=== PATIENT | female | born 1950 | race Caucasian/White ===

== ENCOUNTER 2019-11-08 10:06 | Emergency (ER) | payer OTHER ==
[2019-11-08 10:28] VITALS: BP 152/74; PULSE 83; BMI 26.4
[2019-11-08] MEDS ORDERED: METHOCARBAMOL 500 MG TABLET PO ONE (10:40)
[2019-11-08] MEDS ORDERED: KETOROLAC TROMETHAMINE 30 MG/1 ML VIAL IM ONE (10:40)
[2019-11-08] MEDS ORDERED: KETOROLAC TROMETHAMINE 30 MG/1 ML VIAL ONE (10:48)
[2019-11-08] MEDS ORDERED: METHOCARBAMOL 500 MG TABLET ONE (10:48)
--- NOTE | 2019-11-08 10:56 | PDOC ---
History of Present Illness - General Chief Complaint: Back Pain Stated Complaint: BACK PAIN Time Seen by Provider: 11/08/19 10:31 History Source: Patient Exam Limitations: Clinical Condition - History of Present Illness Initial Comments: 11/08/19 10:51 Patient with no significant past medical history present with complaint of 5-day history of persistent bilateral lower back pain with increased pain to left side status post doing house cleaning and mopping 5 days ago. Denies radiculopathy. Denies saddle paresthesia, urinary and fecal incontinence. Denies any other symptoms. Patient report taking Tylenol for back pain with no improvement Occurred: reports: other (5 days) Past History - Medical History Allergies/Adverse Reactions: Allergies Allergy/AdvReac Type Severity Reaction Status Date / Time No Known Allergies Allergy Verified 11/08/19 10:21 Home Medications: Ambulatory Orders Calcium+ Vitamin D 1 tab PO DAILY 04/24/11 Lisinopril 20Mg/Hctz 12.5MG 1 tab PO DAILY 04/24/11 Methocarbamol [Robaxin -] 500 mg PO BID #14 tablet 11/08/19 Naproxen [Naprosyn -] 375 mg PO BID PRN #20 tablet 11/08/19 Anemia: No Asthma: No Cancer: No Cardiac Disorders: No CVA: No COPD: No CHF: No Dementia: No Diabetes: No GI Disorders: No Disorders: No HTN: Yes Hypercholesterolemia: Yes Liver Disease: No Seizures: No Thyroid Disease: No - Surgical History Abdominal Surgery: No Appendectomy: No Cardiac Surgery: No Cholecystectomy: No Lung Surgery: No Neurologic Surgery: No Orthopedic Surgery: No - Psycho-Social/Smoking History Smoking History: Never smoked Have you smoked in the past 12 months: Yes - Substance Abuse Hx (Audit-C & DAST Scrn) How often the patient has a drink containing alcohol: Never Score: In Men: 4 or > Positive; In Women: 3 or > Positive: 0 Screen Result (Pos requires Nsg. Audit-10AR): Negative In the last yr the pt used illegal drug/Rx for NonMed reason: No Score: Yes response is considered Positive: 0 Screen Result (Positive result requires Nsg. DAST-10): Negative Review of Systems - Review of Systems Able to Perform ROS?: Yes Is the patient limited Wallisian proficient: No Constitutional: No: Chills, Fever, Malaise HEENTM: No: Symptoms Reported, See HPI, Eye Pain, Blurred Vision, Tearing, Recent change in vision, Double Vision, Cataracts, Ear Pain, Ocular Prothesis, Ear Discharge, Nose Pain, Nose Congestion, Tinnitus, Nose Bleeding, Hearing Loss, Throat Pain, Throat Swelling, Mouth Pain, Dental Problems, Difficulty Swallowing, Mouth Swelling, Other Respiratory: No: Symptoms reported, See HPI, Cough, Orthopnea, Shortness of Breath, SOB with Exertion, SOB at Rest, Stridor, Wheezing, Productive cough, Hemoptysis, Other Cardiac (ROS): No: Symptoms Reported, See HPI, Chest Pain, Edema, Irregular Heart Rate, Lightheadedness, Palpitations, Syncope, Chest Tightness, Other ABD/GI: No: Symptoms Reported, Abd. Pain w/ defecation, Nausea, Vomiting Musculoskeletal: Yes: Symptoms Reported, See HPI, Back Pain, Muscle Pain Integumentary: No: Symptoms Reported Neurological: No: Symptoms reported, See HPI, Numbness, Paresthesia, Tingling, Weakness, Dizziness All Other Systems: Reviewed and Negative *Physical Exam - Vital Signs Last Vital Signs Temp Pulse Resp BP Pulse Ox 83 18 152/74 99 11/08/19 10:23 11/08/19 10:23 11/08/19 10:23 11/08/19 10:23 - Physical Exam 11/08/19 10:56 GENERAL: Well developed, well nourished. Awake and alert. No acute distress. NECK: Supple. Full ROM. PULMONARY: No evidence of respiratory distress. MUSCULOSKELETAL moderate tenderness to bilateral paravertebral muscle with increased point tenderness to left paravertebral muscle of the lumbosacral spine of L2-S1. No midline tenderness. Increased tenderness with rotation of the hip to the side. No radiculopathy. Normal range of motion at all joints. SKIN: Warm and dry. Normal capillary refill. NEUROLOGICAL: Alert, awake, appropriate. Gait is normal without ataxia. PSYCHIATRIC: Cooperative. Good eye contact. Appropriate mood General Appearance: Yes: Nourished, Appropriately Dressed. No: Apparent Distress Medical Decision Making - Medical Decision Making 11/08/19 10:55 Patient with no significant past medical history present with complaint of 5-day history of persistent bilateral lower back pain with increased pain to left side status post doing house cleaning and mopping 5 days ago. Denies radiculopathy. Denies saddle paresthesia, urinary and fecal incontinence. Denies any other symptoms. Patient report taking Tylenol for back pain with no improvement Exam significant for moderate tenderness to bilateral paravertebral muscle with increased point tenderness to left paravertebral muscle of the lumbosacral spine of L2-S1. No midline tenderness. Increased tenderness with rotation of the hip to the side. No radiculopathy. Patient symptoms likely back strain. Patient stable for discharge on naproxen as needed for pain Robaxin for spasm with advised to do hot compresses and rest back with neurosurgery follow-up as needed Discharge - Discharge Information Problems reviewed: Yes Clinical Impression/Diagnosis: Low back strain Qualifiers: Encounter type: initial encounter Qualified Code(s): S39.012A - Strain of muscle, fascia and tendon of lower back, initial encounter Condition: Stable Disposition: HOME - Admission No - Additional Discharge Information Prescriptions: Naproxen [Naprosyn -] 375 mg PO BID PRN #20 tablet PRN Reason: Back Pain Methocarbamol [Robaxin -] 500 mg PO BID #14 tablet - Follow up/Referral Referrals: Imtiaz Philippe MD, [facility] [Staff Physician] - - Patient Discharge Instructions Patient Printed Discharge Instructions: DI for Low Back Pain Additional Instructions: Your back pain is likely muscle pain. Take prescribed medication as needed for pain and spasm. Apply heat to lower back 2-3 times a day as needed for pain. Follow-up referred orthopedic biology specialist if symptoms persist for more than 3 days - Post Discharge Activity
== END 2019-11-08 11:07 | disposition home or self-care (01) ==
LOC: JERFT 10:06
PROC: 3E023NZ Introduction of Analgesics, Hypnotics, Sedatives into Muscle, Percutaneous Approach (ICD-10-PCS; principal; 2019-11-08)
DX: S39.012A Strain of muscle, fascia and tendon of lower back, initial encounter (principal)
CPT/HCPCS: 99285-25